=== PATIENT | male | born 1965 | race African-American/Black ===

== ENCOUNTER 2024-09-25 13:18 | Inpatient (IN) | payer MEDICAID, OTHER ==
[~2024-09-25] VITALS: Ht 190.5 cm; Wt 92.7 kg
--- NOTE | 2024-09-25 14:23 | ED.PDOC ---
HPI (NEURO) HPI Comments 58-year-old male with past medical history of CVA 3 times, hypertension, diabetes mellitus, hyperlipidemia presented with complaints of mechanical fall. at bedside mentioned that patient fell 2 times in last two weeks. Patient had one episode of vomiting with the 2nd fall that happened one week ago. During the 2nd Fall event, patient was found on the floors "passed out" according to the , when she tried to wake him up, he he woke up after 4-5 seconds. According to he has become more confused in last 2 weeks, has associated urinary incontinence. For the past two weeks patient also started having unstable gait. Patient had a tooth break during the falls. also mentioned about having weight loss about 9 lb in last one and a half month. On evaluation, patient is alert and oriented x4, denies any active complaints but mentioned that he does not feel good but could not explain why. Past medical history CVA 3 times, hypertension, diabetes mellitus, hyperlipidemia , anemia Past surgical history Not significant Medication history Ozempic, insulin Lantus, hydrochlorothiazide, atorvastatin, memantine, gabapentin, amlodipine, tamsulosin, megestrol, fluoxetine, candesartan, cilostazol, metformin, aspirin ROS Constitutional: Generalized weakness, recent weight loss, no fever, chills Eyes: Decrease in vision per ENT: Decrease in hearing per Respiratory: No: Cough, Dry, Shortness of breath, SOB with excertion, Wheezing, Hemoptysis, Pleuritic Pain, Sputum, Wheezing, Other Cardiovascular: No: Chest Pain, Palpitations, Orthopnea, Paroxysmal Noc. Dyspn ea, Edema, Lt Headedness, Other Gastrointestinal: No: Nausea, Vomiting, Abdominal Pain, Diarrhea, Constipation, Melena, Hematochezia, Other Musculoskeletal: No: other, neck pain, shoulder pain, arm pain, back pain, hand pain, leg pain, foot pain Neurological:; unsteady gait, mechanical fall, urinary incontinence, confusion per Examination General Appearance: Alert, Oriented X3, Cooperative, No acute distress Respiratory: Clear to auscultation, Normal air movement Cardiovascular: Regular rate, Normal S1, Normal S2 Abdominal: Soft Skin: No rashes, No breakdown Neuro: Slow speech, mild facial deviation, no other gross cranial nerve defects, no motor deficit in bilateral upper limb, gait not assessed Attestation note: Dr. Tidwell: I was the supervising attending for this ED encounter. Please see the resident's notes. I was available for questions and consultations. Differential diagnosis: DDX include CVA, TGA, cerebellar ischemia/infarct, carotid stenosis, Intracranial mass/infection/bleed, encephalopathy, electrolyte abnormality, thyroid disease, hydrocephalus, hypoglycemia, drug toxicity, cardiac arrhythmia, seizure, infection in the elderly, Hyperammonemia., kidney failure., sepsis. MDM: Patient presented with the above HPI.--fall/AMS----workup was initiated. patient was found with the above mentioned diagnosis. Patient was given: Fluids and Zosyn Patient ED course and VS have been stabilized. Patient has been reassessed in the ED and remained in a stable condition. Pertinent incidental findings were discussed with the patient and/or family. Patient/family voices understanding and is agreeable with plan. Patient has been observed in the ED adequate length of time to insure improvement/stability. patient was admitted to the medicine team for further evaluation and treatment of their presentation. All the reports of any imaging studies that were ordered by myself were reviewed by myself. Chief Complaint: General Weakness Time Seen by MD: 13:24 Information Source: Patient, Emergency Med Personnel Mode of Arrival: Wheelchair Physical Exam General Appearance: Other (Mentioned in the note) HEENT: Other (Mentioned in the note) Neck: Other (mentioned in the note) Respiratory: Other (Mentioned in the note) Cardiovascular: Other (Mentioned in the note) Breast Exam: Deferred Gastrointestinal: Other (Mentioned in the note) Genitalia: Deferred Pelvic: Deferred Rectal: Deferred Extremities: Other (Mentioned did not note) Neurologic: Other (Mentioned in the note) Cerebellar Function: Other (Mentioned in the note) Reflexes: Other (Mentioned in the note) Skin: Other (Mentioned in the note) Lymphatic: Other (Mentioned in the note) Was a procedure done? Was a procedure done?: No Differential Diagnosis (SZ) CVA: CVA, Drug Overdose, Electrolyte Imbalance, Encephalopathy, Mass Lesion General Weakness: Anemia, Dehydration, Electrolyte imbalance, Encephalopathy, Vertigo: central, Other (Includes but not limited to thyroid disease, encephalopathy, electrolyte abnormality, sepsis, infection, intracranial pathology, drug adverse effects, arrhythmia, kidney insufficiency, ACS, CVA, malignancy, anemia) Headache: Other (DDX include CVA, TGA, cerebellar ischemia/infarct, carotid stenosis, Intracranial mass/infection/bleed, encephalopathy, electrolyte abnormality, thyroid disease, hydrocephalus, hypoglycemia, drug toxicity, cardiac arrhythmia, seizure, infection in the elderly, Hyperammonemia., kidney failure., sepsis.) X-Ray, Labs, Meds, VS Vital Signs Date Time Temp Pulse Resp B/P (MAP) Pulse Ox O2 Delivery O2 Flow Rate FiO2 09/25/24 20:17 98.8 121 18 111/67 (82) 96 98.8 09/25/24 16:36 Room Air* 0 21 09/25/24 16:35 99.5 97 15 115/81 (92) 100 99.5 09/25/24 13:42 99.1 107 16 116/83 (94) 100 09/25/24 13:40 111 Lab Test 09/25/24 20:28 09/25/24 20:11 09/25/24 17:30 09/25/24 14:30 Range/Units Urine Color Yellow Yellow Urine Clarity Clear Clear Urine pH 5.0 5.0-9.0 Urine Specific [place] 1.023 1.001-1.035 Urine Protein Trace H Negative Urine Ketones Negative Negative Urine Blood Negative Negative /uL Urine Nitrite Negative Negative Urine Bilirubin Negative Negative Urine Urobilinogen Normal Negative mg/dL Urine Leukocyte Esterase Negative Negative /uL Urine RBC 2 0 - 3 /hpf Urine WBC 1 0 - 3 /hpf Urine Squamous Epithelial Cells None seen <5 /hpf Urine Bacteria Few H None Seen /hpf Urine Mucus Few None Seen Urine Glucose Normal Normal mg/dL Urine Opiates Screen Neg NEGATIVE Urine Fentanyl Screen Neg NEGATIVE Urine Barbiturates Screen Neg NEGATIVE Urine Phencyclidine Screen Neg NEGATIVE Urine Amphetamines Screen Neg NEGATIVE Urine Benzodiazepines Screen Neg NEGATIVE Urine Cocaine Screen Neg NEGATIVE Urine Cannabinoids Screen Neg NEGATIVE Troponin I High Sensitivity 3 L < 3 L 3 L </=54 ng/L Lactic Acid Level 3.9 *H 3.0 *H 0.4-2.0 mmol/L White Blood Count 5.2 4.4-10.8 10^3/uL Red Blood Count 3.99 L 4.5-5.90 10^6/uL Hemoglobin 11.8 L 13.5-17.5 g/dL Hematocrit 35.2 L 41.0-53.0 % Mean Corpuscular Volume 88.1 80.0-100.0 fL Mean Corpuscular Hemoglobin 29.6 28.0-32.0 pg Mean Corpuscular Hemoglobin Concent 33.6 32.0-36.0 g/dL Red Cell Distribution Width 17.2 H 11.8-14.3 % Platelet Count 331 140-450 10^3/uL Mean Platelet Volume 6.6 L 6.9-10.8 fL Neutrophils (%) (Auto) 60.0 37.0-80.0 % Lymphocytes (%) (Auto) 25.9 10.0-50.0 % Monocytes (%) (Auto) 9.6 0.0-12.0 % Eosinophils (%) (Auto) 3.3 0.0-7.0 % Basophils (%) (Auto) 1.2 0.0-2.0 % Neutrophils # (Auto) 3.1 1.6-8.6 10 ^3/uL Lymphocytes # (Auto) 1.3 0.4-5.4 10 ^3/uL Monocytes # (Auto) 0.5 0-1.3 10 ^3/uL Eosinophils # (Auto) 0.2 0-0.8 10 ^3/uL Basophils # (Auto) 0.1 0-0.2 10 ^3/uL Nucleated Red Blood Cells 0.0 % Prothrombin Time 11.2 9.3-11.8 sec Prothrombin Time INR 1.06 0.9-1.15 Activated Partial Thromboplast Time 24.9 24.5-34.5 SEC Sodium Level 138 136-145 mmol/L Potassium Level 3.7 3.5-5.1 mmol/L Chloride Level 107 98-107 mmol/L Carbon Dioxide Level 22 20-31 mmol/L Anion Gap 9 5-15 Blood Urea Nitrogen 11 9-23 mg/dL Creatinine 0.98 0.700-1.30 mg/dL Glomerular Filtration Rate Calc 89 >90 mL/min BUN/Creatinine Ratio 11.2 10.0-20.0 Serum Glucose 138 H 74-106 mg/dL Calcium Level 10.3 8.7-10.4 mg/dL Magnesium Level 1.8 1.6-2.6 mg/dL Total Bilirubin 0.5 0.2-1.0 mg/dL Aspartate Amino Transferase (AST) 10 L 13-40 U/L Alanine Aminotransferase (ALT) 24 7-40 U/L Alkaline Phosphatase 70 46-116 U/L Ammonia < 10 L 11-32 umol/L Total Protein 6.6 5.7-8.2 g/dL Albumin 4.0 3.2-4.8 g/dL Lipase 69 H 12-53 U/L Test 09/25/24 13:32 Range/Units POC Glucose 146 H 70-106 mg/dl Microbiology Date/Time Source Procedure Growth Status 09/25/24 20:28 Voided Urine Urine Culture - Final [place] [facility] [place] [id number] [place] [address] Ph: [phone] DIAGNOSTIC IMAGING Diagnostic Imaging Report : [id number] Signed PATIENT: JAYA MCKEON ACCT: [id number] UNIT: [id number] : 1965 LOC: ER ROOM / BED: / AGE / SEX: 58 / M ADM STATUS: REG ER SERVICE 1343 ORDERING PHYSICIAN: SEBASTIEN TIDWELL DO PROCEDURE(s): HWOCT - HEAD WITHOUT CONTRAST REASON: FALL INJURY/HEADACHE ORDER NUMBER(s): [id number], ACCESSION NUMBER(s): [id number] EXAM: CT HEAD WITHOUT CONTRAST HISTORY: FALL INJURY/HEADACHE COMPARISON: None TECHNIQUE: Axial images of the head were obtained and reformatted in coronal and sagittal planes. All CT scans at this medical facility are performed using dose modulation techniques as appropriate to a performed exam including the following: Automated exposure control was utilized; adjustment of the MA and/or KV according to patient size; and use of iterative reconstruction technique. CT Dose: CTDI volume is 24.7 mGy. Dose-length product is 2174 mGy*cm FINDINGS: There is a hypodense focus along the anterior left thalamus, just left lateral to the 3rd ventricle which may represent a chronic infarct. There is also a small chronic infarct in the right cerebellum. There is no evidence of acute in tracranial hemorrhage, mass, mass effect midline shift. There is no hydrocephalus or extra-axial fluid collection. The visualized paranasal sinuses and mastoid air cells are clear. The calvarium is intact. IMPRESSION: 1. No acute intracranial process. 2. Chronic infarcts along the anterior left thalamus and in the right cerebellum. HS:Y ATED BY: DALE HERNANDEZ MD DICTATED DATE/TIME: 09/25/241434 SIGNED BY: DALE HERNANDEZ MD SIGNED DATE/TIME: 09/25/24 143 CC: [address] [address] Ph: [phone] DIAGNOSTIC IMAGING Diagnostic Imaging Report : [id number] Signed PATIENT: JAYA MCKEON ACCT: [id number] UNIT: [id number] : 1965 LOC: ER ROOM / BED: / AGE / SEX: 58 / M ADM STATUS: REG ER SERVICE 1356 ORDERING PHYSICIAN: SEBASTIEN TIDWELL DO PROCEDURE(s): CS2 - CERVICAL WITHOUT CONTRAST REASON: fall ORDER NUMBER(s): [id number], ACCESSION NUMBER(s): [id number] Procedure: CT CERVICAL WITHOUT CONTRAST 09/25/2024 02:03 PM Indication: fall Comparison Study: None. Technique: Axial images were obtained and reformatted in coronal and sagittal planes. All CT scans at this medical facility are performed using dose modulation techniques as appropriate to a performed exam including the following: Automated exposure control was utilized; adjustment of the MA and/or KV according to patient size; and use of iterative reconstruction technique. CT Dose: CTDI volume is 68.2 mGy. Dose-length product is 2174.28 mGy*cm FINDINGS: Bones: The vertebrae are normal in height. Normal alignment of the vertebrae. Lateral masses C1 and C2 are well aligned. The posterior facet joints are well aligned. Narrowing of C5-C6 disc height with discogenic endplate changes and uncovertebral arthropathy with resultant mild osseous central canal stenosis and [id number] bilateral neural foramina stenosis noted. Soft tissues: Paraspinal and prevertebral soft tissues are within normal limits. IMPRESSION: 1. Straightening of normal lordosis that could be positional, reflect muscle spasm or pain. Correlate clinically. 2. No acute osseous abnormality. ATED BY: ENEDINA BAÑUELOS MD DICTATED DATE/TIME: 09/25/241444 SIGNED BY: ENEDINA BAÑUELOS MD SIGNED DATE/TIME: 09/25/241444 CC: [address] - [address] Ph: [phone] DIAGNOSTIC IMAGING Diagnostic Imaging Report : [id number] Signed PATIENT: JAYA MCKEON ACCT: [id number] UNIT: [id number] : 1965 LOC: ER ROOM / BED: / AGE / SEX: 58 / M ADM STATUS: REG ER SERVICE 1356 ORDERING PHYSICIAN: SEBASTIEN TIDWELL DO PROCEDURE(s): CXRP - CHEST PORTABLE REASON: weak ORDER NUMBER(s): [id number], ACCESSION NUMBER(s): [id number] EXAM: XY CHEST PORTABLE TECHNIQUE: Single frontal chest radiograph CLINICAL HISTORY: weak COMPARISON: None Findings/Impression: Frontal chest radiograph demonstrates no acute osseous or superficial soft tissue abnormalities. The trachea is midline. The cardiac silhouette and mediastinum are within normal limits. No pneumothorax, pleural effusions, or consolidations. ATED BY: SHANNON CELESTIN DO DICTATED DATE/TIME: 09/25/241431 SIGNED BY: SHANNON CELESTIN DO SIGNED DATE/TIME: 09/25/24 143 CC: Time of 1ST Reevaluation: 15:59 Reevaluation 1ST: Unchanged Patient Education/Counseling: Diagnosis, Treatment Family Education/Counseling: Diagnosis, Treatment Comments Patient presented with mechanical fall, confusion, unsteady gait and urinary incontinence. workup was initiated. Head CT did not show any acute abnormality and cervical spine CT showed S traightening of normal lordosis that could be positional, reflect muscle spasm or pain. Correlate clinically. Patient was given: IV fluids and IV Zosyn once. Patient has been observed in the ED adequate length of time to insure improvement/stability. patient was admitted to the medicine team for further evaluation and treatment of their presentation. All the reports of any imaging studies that were ordered by myself were reviewed by myself. Departure 1 Departure Time of Disposition: 15:59 Impression: Primary Impression: Fall Additional Impressions: Unsteady gait Altered mental status Elevated lactic acid level Disposition: ADMITTED INPATIENT Admit to: Tele Condition: Guarded Discharged With: Self Critical Care Note Critical Care Time?: No Stability Stability form required: No Heart Score Heart Score: Heart Score Response (Comments) Value History N/A 0 EKG N/A 0 Age N/A 0 Risk Factors N/A 0 Troponin N/A 0 Total 0 CECI LUONG Sep 25, 2024 14:22 SEBASTIEN TIDWELL DO Oct 03, 2024 21:24
--- NOTE | 2024-09-25 14:35 | DVH ---
EXAM: XY CHEST PORTABLE TECHNIQUE: Single frontal chest radiograph CLINICAL HISTORY: weak COMPARISON: None Findings/Impression: Frontal chest radiograph demonstrates no acute osseous or superficial soft tissue abnormalities. The trachea is midline. The cardiac silhouette and mediastinum are within normal limits. No pneumothorax, pleural effusions, or consolidations.
--- NOTE | 2024-09-25 14:37 | DVH ---
EXAM: CT HEAD WITHOUT CONTRAST HISTORY: FALL INJURY/HEADACHE COMPARISON: None TECHNIQUE: Axial images of the head were obtained and reformatted in coronal and sagittal planes. All CT scans at this medical facility are performed using dose modulation techniques as appropriate t o a performed exam including the following: Automated exposure control was utilized; adjustment of th e MA and/or KV according to patient size; and use of iterative reconstruction technique. CT Dose: CTDI volume is 24.7 mGy. Dose-length product is 2174 mGy*cm FINDINGS: There is a hypodense focus along the anterior left thalamus, just left lateral to the 3rd ventricle w hich may represent a chronic infarct. There is also a small chronic infarct in the right cerebellum. There is no evidence of acute intracranial hemorrhage, mass, mass effect midline shift. There is no h ydrocephalus or extra-axial fluid collection. The visualized paranasal sinuses and mastoid air cells are clear. The calvarium is intact. IMPRESSION: 1. No acute intracranial process. 2. Chronic infarcts along the anterior left thalamus and in the right cerebellum. HS:Y
[2024-09-25 14:41] LABS: Basophils # (auto) 0.1 10 ^3/uL (0-0.2); Basophils % (auto) 1.2 % (0.0-2.0); Eosinophils # (auto) 0.2 10 ^3/uL (0-0.8); Eosinophils % (auto) 3.3 % (0.0-7.0); Hematocrit 35.2 % (41.0-53.0); Hemoglobin 11.8 g/dL (13.5-17.5); Lymphocytes # (auto) 1.3 10 ^3/uL (0.4-5.4); Lymphocytes % (auto) 25.9 % (10.0-50.0); Mean Corpuscular Hemoglobin 29.6 pg (28.0-32.0); Mean Corpuscular Hgb Conc. 33.6 g/dL (32.0-36.0); Mean Corpuscular Volume 88.1 fL (80.0-100.0); Monocytes # (auto) 0.5 10 ^3/uL (0-1.3); Monocytes % (auto) 9.6 % (0.0-12.0); Neutrophils # (auto) 3.1 10 ^3/uL (1.6-8.6); Platelet Count (auto) 331 10^3/uL (140-450); Red Blood Cells 3.99 10^6/uL (4.5-5.90); Red Cell Distribution Width 17.2 % (11.8-14.3); White Blood Cell 5.2 10^3/uL (4.4-10.8)
--- NOTE | 2024-09-25 14:48 | DVH ---
Procedure: CT CERVICAL WITHOUT CONTRAST 09/25/2024 02:03 PM Indication: fall Comparison Study: None. Technique: Axial images were obtained and reformatted in coronal and sagittal planes. All CT scans at this medical facility are performed using dose modulation techniques as appropriate t o a performed exam including the following: Automated exposure control was utilized; adjustment of th e MA and/or KV according to patient size; and use of iterative reconstruction technique. CT Dose: CTDI volume is 68.2 mGy. Dose-length product is 2174.28 mGy*cm FINDINGS: Bones: The vertebrae are normal in height. Normal alignment of the vertebrae. Lateral masses C1 and C2 are well aligned. The posterior facet joints are well aligned. Narrowing of C5-C6 disc height with discogenic endplate changes and uncovertebral arthropathy with resultant mild osseous central canal stenosis and [id number] bilateral neural foramina stenosis noted. Soft tissues: Paraspinal and prevertebral soft tissues are within normal limits. IMPRESSION: 1. Straightening of normal lordosis that could be positional, reflect muscle spasm or pain. Correlate clinically. 2. No acute osseous abnormality.
[2024-09-25 14:59] LABS: Alanine Aminotransferase 24 U/L (7-40); Alkaline Phosphatase 70 U/L (46-116); Anion Gap 9 (5-15); Aspartate Aminotransferase 10 U/L (13-40); BUN/Creatinine Ratio 11.2 (10.0-20.0); Bilirubin, Total 0.5 mg/dL (0.2-1.0); Blood Urea Nitrogen 11 mg/dL (9-23); Calcium 10.3 mg/dL (8.7-10.4); Carbon Dioxide 22 mmol/L (20-31); Chloride 107 mmol/L (98-107); Glucose 138 mg/dL (74-106); Lipase 69 U/L (12-53); Magnesium 1.8 mg/dL (1.6-2.6); Potassium 3.7 mmol/L (3.5-5.1); Sodium 138 mmol/L (136-145)
[2024-09-25 15:00] LABS: Total Protein 6.6 g/dL (5.7-8.2)
[2024-09-25 15:23] LABS: INR 1.06 (0.9-1.15); Partial Thromboplastin Time 24.9 SEC (24.5-34.5); Prothrombin Time 11.2 sec (9.3-11.8)
[2024-09-25] MEDS: SODIUM CHLORIDE 0.9% 1,000 ML IV ONE (16:33)
[2024-09-25] MEDS ORDERED: ACETAMINOPHEN 325 MG TAB PO PRN ×2 (21:15)
[2024-09-25] MEDS ORDERED: MORPHINE SULFATE INJ 2 MG/ml SYRG IV PRN ×2 (21:15)
[2024-09-25] MEDS ORDERED: NITROGLYCERIN 0.4 MG SL TAB SL PRN (21:15)
[2024-09-25] MEDS ORDERED: ONDANSETRON HCL 4 MG/2 ML VIAL IV PRN (21:15)
[2024-09-25 21:22] LABS: Urine Bacteria FEW /hpf (None Seen); Urine Blood Negative /uL (Negative); Urine Clarity Clear (Clear); Urine Color Yellow (Yellow); Urine Mucus FEW (None Seen); Urine Protein, UAD TRACE (Negative); Urine Specific Gravity 1.023 (1.001-1.035); Urine Urobilinogen Normal (Negative); Urine WBC 1 /hpf (0 - 3)
--- NOTE | 2024-09-25 22:10 | DVHHPRES ---
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 patient went to see his PCP and PCP sent the patient to ER. History was mostly taken from . As per patient had a fall on Wednesday09/16/24 and also on Wednesday09/19/24. Patient's reported after 1st fall on 09/17/2024 patient had vomiting, no blood. After 2nd fall on 09/19/24 patient lost consciousness for 4-5 seconds. On both fall patient was facing down, hit on the left side of the face especially on the left supraorbital region which caused some left supra orbital swelling. As per patient his pain was 5/10, crampy, no aggravating or relieving factor, no radiation. Patient's reported that after falls he is having intermittent incontinence of the urine and also worsening memory loss, worsening balance and decreased hearing on the right side of ear. Further discussion patient's also reported patient has been losing weight recently. Patient and his denied chest pain, shortness of breath, palpitation, fever, constipation or d iarrhea, acute joint pain or swelling. Lab workup revealed lactic acidosis, elevated lipase 69, troponin I negative, EKG with sinus tachycardia. On further lab workup CT head revealed-No acute intracranial process. Chronic infarcts along the anterior left thalamus and in the right cerebellum. CT scan of the cervical spine revealed- Straightening of normal lordosis that could be positional, reflect muscle spasm or pain. Correlate clinically. No acute osseous abnormality. CXR no acute cardiopulmonary disease noted. home meds Lantus 22 q.h.s., Ozempic 1 mg per week, atorvastatin 80 mg q.h.s., metformin 850 mg b.i.d., candesartan, cilostazol, aspirin 81 mg p.o. q.d., folic acid Past Medical History History of stroke 3 times, 1st two on October 122021, run was 7 days later, diabetes mellitus type 2, hypertension, hyperlipidemia Past Surgical History knee Surgery, cataract surgery Family History Father of heart attack, mom had diabetes mellitus Past Social History Lives with , nonalcoholic, non smoker, no substance abuse Review of Systems Review of Systems Patient was seen today at the bedside. Patient reports left supraorbital pain 03/17 Cardiovascular- deny acute chest pain or shortness of breath or cough or palpitation Respiratory- denies cough or short of breath or wheezing Gastrointestinal- denies any rectal bleeding, nausea or vomiting Musculoskeletal-denies acute joint swelling or tenderness or redness Neurological- denies acute dysarthria, dysphagia, change in vision Psychiatry- denies depression or SI or HI Skin- denies acute rash or purpura Constitutional: Yes: Fever, Chills, Sweats, Weakness, Malaise Allergies: Coded Allergies: NO KNOWN ALLERGIES (Unverified , 09/25/24) Medications Current Medications Medications Dose Ordered Sig/Keiko Route Start Time Stop Time Status Last Admin Dose Admin Acetaminophen 325 mg Q4HP PRN PO 09/25/24 21:15 Ondansetron HCl 4 mg Q4HP PRN IV 09/25/24 21:15 Acetaminophen 650 mg Q6HP PRN PO 09/25/24 21:15 Morphine Sulfate 2 mg Q4HPRN PRN IV 09/25/24 21:15 Nitroglycerin 0.4 mg Q5MINP PRN SL 09/25/24 21:15 Morphine Sulfate 2 mg Q30M PRN IV 09/25/24 21:15 Exam Vital Signs Vital Signs Date Time Temp Pulse Resp B/P (MAP) Pulse Ox O2 Delivery O2 Flow Rate FiO2 09/25/24 20:17 98.8 121 18 111/67 (82) 96 98.8 09/25/24 16:36 Room Air* 0 21 Exam General examination- by, alert, oriented HEENT- PEERLA, no acute nasal discharge Cardiovascular- S1-S2 audible, rate and rhythm regular, no murmur Respiratory- CTAB, no wheeze or rhonchi Gastrointestinal-nontender, bowel sound+. Nondistended Musculoskeletal-no acute joint swelling or tenderness or redness# Lower extremity- no leg edema Neurological- right-sided weakness of the body Psychiatry- denies depression or SI or HI Skin- no acute rash or purpura Labs/Xrays Labs Test 09/25/24 20:28 09/25/24 20:11 09/25/24 17:30 09/25/24 14:30 Range/Units Urine Color Yellow Yellow Urine Clarity Clear Clear Urine pH 5.0 5.0-9.0 Urine Specific [place] 1.023 1.001-1.035 Urine Protein Trace H Negative Urine Ketones Negative Negative Urine Blood Negative Negative /uL Urine Nitrite Negative Negative Urine Bilirubin Negative Negative Urine Urobilinogen Normal Negative mg/dL Urine Leukocyte Esterase Negative Negative /uL Urine RBC 2 0 - 3 /hpf Urine WBC 1 0 - 3 /hpf Urine Squamous Epithelial Cells None seen <5 /hpf Urine Bacteria Few H None Seen /hpf Urine Mucus Few None Seen Urine Glucose Normal Normal mg/dL Troponin I High Sensitivity 3 L </=54 ng/L Lactic Acid Level 3.9 *H 0.4-2.0 mmol/L White Blood Count 5.2 4.4-10.8 10^3/uL Red Blood Count 3.99 L 4.5-5.90 10^6/uL Hemoglobin 11.8 L 13.5-17.5 g/dL Hematocrit 35.2 L 41.0-53.0 % Mean Corpuscular Volume 88.1 80.0-100.0 fL Mean Corpuscular Hemoglobin 29.6 28.0-32.0 pg Mean Corpuscular Hemoglobin Concent 33.6 32.0-36.0 g/dL Red Cell Distribution Width 17.2 H 11.8-14.3 % Platelet Count 331 140-450 10^3/uL Mean Platelet Volume 6.6 L 6.9-10.8 fL Neutrophils (%) (Auto) 60.0 37.0-80.0 % Lymphocytes (%) (Auto) 25.9 10.0-50.0 % Monocytes (%) (Auto) 9.6 0.0-12.0 % Eosinophils (%) (Auto) 3.3 0.0-7.0 % Basophils (%) (Auto) 1.2 0.0-2.0 % Neutrophils # (Auto) 3.1 1.6-8.6 10 ^3/uL Lymphocytes # (Auto) 1.3 0.4-5.4 10 ^3/uL Monocytes # (Auto) 0.5 0-1.3 10 ^3/uL Eosinophils # (Auto) 0.2 0-0.8 10 ^3/uL Basophils # (Auto) 0.1 0-0.2 10 ^3/uL Nucleated Red Blood Cells 0.0 % Prothrombin Time 11.2 9.3-11.8 sec Prothrombin Time INR 1.06 0.9-1.15 Activated Partial Thromboplast Time 24.9 24.5-34.5 SEC Sodium Level 138 136-145 mmol/L Potassium Level 3.7 3.5-5.1 mmol/L Chloride Level 107 98-107 mmol/L Carbon Dioxide Level 22 20-31 mmol/L Anion Gap 9 5-15 Blood Urea Nitrogen 11 9-23 mg/dL Creatinine 0.98 0.700-1.30 mg/dL Glomerular Filtration Rate Calc 89 >90 mL/min BUN/Creatinine Ratio 11.2 10.0-20.0 Serum Glucose 138 H 74-106 mg/dL Calcium Level 10.3 8.7-10.4 mg/dL Magnesium Level 1.8 1.6-2.6 mg/dL Total Bilirubin 0.5 0.2-1.0 mg/dL Aspartate Amino Transferase (AST) 10 L 13-40 U/L Alanine Aminotransferase (ALT) 24 7-40 U/L Alkaline Phosphatase 70 46-116 U/L Ammonia < 10 L 11-32 umol/L Total Protein 6.6 5.7-8.2 g/dL Albumin 4.0 3.2-4.8 g/dL Lipase 69 H 12-53 U/L Test 09/25/24 13:32 Range/Units POC Glucose 146 H 70-106 mg/dl Assessment/Plan Assessment/Plan # mechanical fall twice -reported worsening loss of balance -worsening hearing on the right side -intermittent incontinence of urine -left periorbital pain - CT head revealed-No acute intracranial process. Chronic infarcts along the anterior left thalamus and in the right cerebellum. - CT scan of the cervical spine revealed- Straightening of normal lordosis that could be positional, reflect muscle spasm or pain. Correlate clinically. No acute osseous abnormality. -fall precaution # syncope - CT head revealed-No acute intracranial process. Chronic infarcts along the anterior left thalamus and in the right cerebellum. - CT scan of the cervical spine revealed- Straightening of normal lordosis that could be positional, reflect muscle spasm or pain. Correlate clinically. No acute osseous abnormality. -fall precaution -pending echo 2D -ordered carotid Doppler -ordered EKG # history of CVD x3 with right-sided residual weakness -- CT head revealed-No acute intracranial process. Chronic infarcts along the anterior left thalamus and in the right cerebellum. -continue aspirin 81 mg p.o. daily -continue atorvastatin 80 mg p.o. q.h.s. # unsteady gait, worsening balance -history of CVD -for precaution --continue aspirin 81 mg p.o. daily -continue atorvastatin 80 mg p.o. q.h.s. # urinary incontinence -history of stroke x3 -urinalysis negative for UTI -continue monitoring #Lactic acidosis due to metformin -lactic acid 3.0>3.9>3.2 -continue IV fluid as prescribed # diabetes mellitus type 2 -continue seen sliding scale as prescribed # hypertension -continue hydralazine p.r.n. as prescribed # hyperlipidemia -continue atorvastatin 80 mg p.o. q.h.s. Goals of care/advance care planning; FULL CODE; discussed with the patient >15 minutes PUD prophylaxis: DVT prophylaxis: Plan discussed with , nursing staff, patient Total time spent on patient evaluation, chart review, assessment and plan, discussion discussion >20 minutes Plan discussed with: Patient Plan discussed with: Patient My Orders Orders - ALYSSA QUIÑONES RESIDENT Procedure Category Date Status Time Admit ADMIT 09/25/24 Transmitted 21:12 Code Status CODE 09/25/24 Transmitted 21:12 2 Gm Sodium Diet DIET 09/26/24 Transmitted Breakfast Acetaminophen Tablet PHA 09/25/24 In Process (Tylenol Tablet) 21:15 Ondansetron Hcl PHA 09/25/24 In Process (Zofran) 21:15 Cardiac DIET 09/26/24 Transmitted Diet-2gna,Lofat,Lochol Breakfast Acetaminophen Tablet PHA 09/25/24 In Process (Tylenol Tablet) 21:15 Morphine Sulfate PHA 09/25/24 In Process Injection 21:15 Nitroglycerin PHA 09/25/24 In Process Sublingual (Ntrostat 21:15 Morphine Sulfate PHA 09/25/24 In Process Injection 21:15 Oxygen By Nasal RT 09/25/24 Transmitted Cannula 21:12 Stat Ekg For Chest [facility] 09/25/24 In Process Pain 21:12 Notify Of Changes [facility] 09/25/24 In Process From Base 21:12 Paint Stripper For [facility] 09/25/24 In Process 24 Hours 21:12 Emergency Dysrhythmia [facility] 09/25/24 In Process Protocol 21:12 Rhythm Strips Once [facility] 09/25/24 In Process Every Shift 21:12 Date of Service: Sep 25, 2024 Billing Provider: NEIL KIRK MD Common Visit Codes: 94623-[id number] INP/OBS CARE (HIGH) ALYSSA QUIÑONES RESIDENT Sep 25, 2024 22:10 NEIL KIRK MD Sep 26, 2024 10:31
[2024-09-25] MEDS: PIPERACILLIN-TAZOB 3.375GM 100 ML IV ONE (22:15)
[2024-09-26] MEDS: ATORVASTATIN 20 MG TAB PO ONE (00:18)
[2024-09-26] MEDS: ASPirin 81 mg TAB PO ONE (00:19)
[2024-09-26 03:25] LABS: Lactic Acid w/Reflex 3.2 mmol/L (0.4-2.0)
[2024-09-26] MEDS ORDERED: DEXTROSE (50%) 50ML SYRG IV PRN (04:45)
[2024-09-26] MEDS ORDERED: hydrALAZINE HCL 20 MG/ML VL IV PRN (04:45)
[2024-09-26] MEDS ORDERED: ONDANSETRON HCL 4 MG/2 ML VIAL IV PRN (04:45)
[2024-09-26] MEDS: SODIUM CHLORIDE 0.9% 1,000 ML IV SCH (04:48)
[2024-09-26 05:11] LABS: Basophils # (auto) 0.1 10 ^3/uL (0-0.2); Basophils % (auto) 1.1 % (0.0-2.0); Eosinophils # (auto) 0.2 10 ^3/uL (0-0.8); Eosinophils % (auto) 3.5 % (0.0-7.0); Hematocrit 32.7 % (41.0-53.0); Hemoglobin 11.1 g/dL (13.5-17.5); Lymphocytes # (auto) 1.4 10 ^3/uL (0.4-5.4); Lymphocytes % (auto) 24.5 % (10.0-50.0); Mean Corpuscular Hemoglobin 29.7 pg (28.0-32.0); Mean Corpuscular Volume 87.4 fL (80.0-100.0); Monocytes # (auto) 0.6 10 ^3/uL (0-1.3); Monocytes % (auto) 10.9 % (0.0-12.0); Neutrophils # (auto) 3.5 10 ^3/uL (1.6-8.6); Platelet Count (auto) 345 10^3/uL (140-450); Red Blood Cells 3.74 10^6/uL (4.5-5.90); Red Cell Distribution Width 17.4 % (11.8-14.3); White Blood Cell 5.9 10^3/uL (4.4-10.8)
[2024-09-26 05:16] LABS: Chloride 105 mmol/L (98-107); Potassium 3.4 mmol/L (3.5-5.1); Sodium 138 mmol/L (136-145)
[2024-09-26 05:17] LABS: Anion Gap 10 (5-15); Calcium 10.2 mg/dL (8.7-10.4); Carbon Dioxide 23 mmol/L (20-31)
[2024-09-26 05:22] LABS: BUN/Creatinine Ratio 10.8 (10.0-20.0); Blood Urea Nitrogen 11 mg/dL (9-23); Glucose 116 mg/dL (74-106)
[2024-09-26 06:13] LABS: Lactic Acid w/Reflex 3.5 mmol/L (0.4-2.0)
[2024-09-26] MEDS: InsuLIN REG 1unit/0.01ml Soln (100units/ml) SC SCH (07:00)
[2024-09-26] MEDS: ACCU-CHEK COMFORT CURVE STRIP VI SCH (07:11)
[2024-09-26] MEDS: POTASSIUM CHL 20MEQ/100ML 100 ML IV SCH (08:17)
[2024-09-26] MEDS: POTASSIUM CHLORIDE 20 MEQ, LIDOCAINE 1% (LOCAL ANESTH.) 2 ML in SODIUM CHL 0.9% 100 ML IV ONE (08:17)
[2024-09-26 08:30] VITALS: BP 125/81; TEMP 98
[2024-09-26 08:44] VITALS: PULSE 103; RESP 17; O2SAT 98
--- NOTE | 2024-09-26 09:07 | DVH ---
CAROTID ARTERIAL DOPPLER CLINICAL HISTORY: Syncopy TECHNIQUE: Doppler study of bilateral carotid/vertebral arteries were performed. Comparison: None FINDINGS: The bilateral common carotid, external and internal carotid arteries appear patent without hemodynami leighton significant stenosis. There is no significant flow limiting plaque formation identified.The sp ectral wave forms and peak systolic velocities are within normal limits. Antegrade flow is present within the vertebral arteries . Right ICA/CCA PSV ratio = 0.7. Left ICA/CCA PSV ratio = 1.3 . IMPRESSION: 1. No hemodynamically significant stenosis within the cervical carotid arteries. HS:Y
[2024-09-26] MEDS ORDERED: ASPirin 81 mg TAB PO SCH (10:00)
--- NOTE | 2024-09-26 12:49 | DVHDSRES ---
Discharge Summary Date of Admission Resident Creating Document: BENNIE TIDWELL RESIDENT Sep 25, 2024 at 21:12 Date of Discharge: Sep 26, 2024 Admitting Diagnosis rule out acute stroke Labs/Diagnostic Data: Laboratory Results Test 09/26/24 06:51 09/26/24 04:51 09/25/24 20:28 09/25/24 20:11 Lactic Acid Level 3.5 mmol/L (0.4-2.0) White Blood Count 5.9 10^3/uL (4.4-10.8) Red Blood Count 3.74 10^6/uL (4.5-5.90) Hemoglobin 11.1 g/dL (13.5-17.5) Hematocrit 32.7 % (41.0-53.0) Mean Corpuscular Volume 87.4 fL (80.0-100.0) Mean Corpuscular Hemoglobin 29.7 pg (28.0-32.0) Mean Corpuscular Hemoglobin Concent 34.0 g/dL (32.0-36.0) Red Cell Distribution Width 17.4 % (11.8-14.3) Platelet Count 345 10^3/uL (140-450) Mean Platelet Volume 6.8 fL (6.9-10.8) Neutrophils (%) (Auto) 60.0 % (37.0-80.0) Lymphocytes (%) (Auto) 24.5 % (10.0-50.0) Monocytes (%) (Auto) 10.9 % (0.0-12.0) Eosinophils (%) (Auto) 3.5 % (0.0-7.0) Basophils (%) (Auto) 1.1 % (0.0-2.0) Neutrophils # (Auto) 3.5 10 ^3/uL (1.6-8.6) Lymphocytes # (Auto) 1.4 10 ^3/uL (0.4-5.4) Monocytes # (Auto) 0.6 10 ^3/uL (0-1.3) Eosinophils # (Auto) 0.2 10 ^3/uL (0-0.8) Basophils # (Auto) 0.1 10 ^3/uL (0-0.2) Nucleated Red Blood Cells 0.0 % Sodium Level 138 mmol/L (136-145) Potassium Level 3.4 mmol/L (3.5-5.1) Chloride Level 105 mmol/L (98-107) Carbon Dioxide Level 23 mmol/L (20-31) Anion Gap 10 (5-15) Blood Urea Nitrogen 11 mg/dL (9-23) Creatinine 1.02 mg/dL (0.700-1.30) Glomerular Filtration Rate Calc 85 mL/min (>90) BUN/Creatinine Ratio 10.8 (10.0-20.0) Serum Glucose 116 mg/dL (74-106) Hemoglobin A1c 7.0 % A1C (<5.7) Calcium Level 10.2 mg/dL (8.7-10.4) Vitamin B12 Level 484 pg/mL (211-911) Thyroid Stimulating Hormone (TSH) 3.69 uIU/mL (0.55-4.78) Urine Color Yellow (Yellow) Urine Clarity Clear (Clear) Urine pH 5.0 (5.0-9.0) Urine Specific [place] 1.023 (1.001-1.035) Urine Protein Trace (Negative) Urine Ketones Negative (Negative) Urine Blood Negative /uL (Negative) Urine Nitrite Negative (Negative) Urine Bilirubin Negative (Negative) Urine Urobilinogen Normal mg/dL (Negative) Urine Leukocyte Esterase Negative /uL (Negative) Urine RBC 2 /hpf (0 - 3) Urine WBC 1 /hpf (0 - 3) Urine Squamous Epithelial Cells None seen /hpf (<5) Urine Bacteria Few /hpf (None Seen) Urine Mucus Few (None Seen) Urine Glucose Normal mg/dL (Normal) Troponin I High Sensitivity 3 ng/L (</=54) Test 09/25/24 14:30 09/25/24 13:32 Prothrombin Time 11.2 sec (9.3-11.8) Prothrombin Time INR 1.06 (0.9-1.15) Activated Partial Thromboplast Time 24.9 SEC (24.5-34.5) Magnesium Level 1.8 mg/dL (1.6-2.6) Total Bilirubin 0.5 mg/dL (0.2-1.0) Aspartate Amino Transferase (AST) 10 U/L (13-40) Alanine Aminotransferase (ALT) 24 U/L (7-40) Alkaline Phosphatase 70 U/L (46-116) Ammonia < 10 umol/L (11-32) Total Protein 6.6 g/dL (5.7-8.2) Albumin 4.0 g/dL (3.2-4.8) Lipase 69 U/L (12-53) POC Glucose 146 mg/dl (70-106) Other Laboratory Tests 09/26/24 04:51 Brief Hx & Hospital Course: 58-year-old male with past medical history of CVA 3 times, hypertension, diabetes mellitus, hyperlipidemia presented with complaints of mechanical fall. at bedside mentioned that patient fell 2 times in last two weeks. Patient had one episode of vomiting with the 2nd fall that happened one week ago. During the 2nd Fall event, patient was found on the floors "passed out" according to the , when she tried to wake him up, he woke up after 4-5 seconds. According to he has become more confused in last 2 weeks, has associated urinary incontinence. For the past two weeks patient also started having unstable gait. Patient had a tooth break during the falls. also mentioned about having weight loss about 9 lb in last one and a half month. At admission; head ct scan showed Chronic infarcts along the anterior left thalamus and in the right cerebellum, spine ct scan Straightening of normal lordosis that could be positional, reflect muscle spasm or pain. Normal carotid Doppler Labs: elevated lactic acid and hypokalemia. During the assessment in the morning, patient states that he wants to go home and refuse any work up, extensively counseling was done regarding to f/u with cardiology and neurology due to the high change of new stroke probably cardioembolic, patient left AMA General examination- by, alert, oriented HEENT- PEERLA, no acute nasal discharge Cardiovascular- S1-S2 audible, rate and rhythm regular, no murmur Respiratory- CTAB, no wheeze or rhonchi Gastrointestinal-nontender, bowel sound+. Nondistended Musculoskeletal-no acute joint swelling or tenderness or redness# Lower extremity- no leg edema Neurological- right-sided weakness of the body Psychiatry- denies depression or SI or HI Skin- no acute rash or purpura Case discussed with Dr Larsen Time spent on care 23 min Operations or Procedures EXAM: CT HEAD WITHOUT CONTRAST HISTORY: FALL INJURY/HEADACHE COMPARISON: None TECHNIQUE: Axial images of the head were obtained and reformatted in coronal and sagittal planes. All CT scans at this medical facility are performed using dose modulation techniques as appropriate to a performed exam including the following: Automated exposure control was utilized; adjustment of the MA and/or KV according to patient size; and use of iterative reconstruction technique. CT Dose: CTDI volume is 24.7 mGy. Dose-length product is 2174 mGy*cm FINDINGS: There is a hypodense focus along the anterior left thalamus, just left lateral to the 3rd ventricle which may represent a chronic infarct. There is also a small chronic infarct in the right cerebellum. There is no evidence of acute intracranial hemorrhage, mass, mass effect midline shift. There is no hydrocephalus or extra-axial fluid collection. The visualized paranasal sinuses and mastoid air cells are clear. The calvarium is intact. IMPRESSION: 1. No acute intracranial process. 2. Chronic infarcts along the anterior left thalamus and in the right cerebellum. Procedure: CT CERVICAL WITHOUT CONTRAST 09/25/2024 02:03 PM Indication: fall Comparison Study: None. Technique: Axial images were obtained and reformatted in coronal and sagittal planes. All CT scans at this medical facility are performed using dose modulation techniques as appropriate to a performed exam including the following: Automated exposure control was utilized; adjustment of the MA and/or KV according to patient size; and use of iterative reconstruction technique. CT Dose: CTDI volume is 68.2 mGy. Dose-length product is 2174.28 mGy*cm FINDINGS: Bones: The vertebrae are normal in height. Normal alignment of the vertebrae. Lateral masses C1 and C2 are well aligned. The posterior facet joints are well aligned. Narrowing of C5-C6 disc height with discogenic endplate changes and uncovertebral arthropathy with resultant mild osseous central canal stenosis and [id number] bilateral neural foramina stenosis noted. Soft tissues: Paraspinal and prevertebral soft tissues are within normal limits. IMPRESSION: 1. Straightening of normal lordosis that could be positional, reflect muscle spasm or pain. Correlate clinically. 2. No acute osseous abnormality. CAROTID ARTERIAL DOPPLER CLINICAL HISTORY: Syncopy TECHNIQUE: Doppler study of bilateral carotid/vertebral arteries were performed. Comparison: None FINDINGS: The bilateral common carotid, external and internal carotid arteries appear patent without hemodynamically significant stenosis. There is no significant flow limiting plaque formation identified.The spectral wave forms and peak systolic velocities are within normal limits. Antegrade flow is present within the vertebral arteries . Right ICA/CCA PSV ratio = 0.7. Left ICA/CCA PSV ratio = 1.3 . IMPRESSION: 1. No hemodynamically significant stenosis within the cervical carotid arteries. Condition at Discharge: Poor Final Diagnosis/Problems List # mechanical fall twice # ?syncope # history of CVD x3 with right-sided residual weakness # rule out acute stroke probably cardioembolic # urinary incontinence # elevated lactic acid #rule out sepsis # diabetes mellitus type 2 # essential hypertension # hyperlipidemia Discharge Disposition: AMA Discharge Statement: "Patient was advised to return to the ER or call 911 if any headaches, dizziness, shortness of breath, chest pain, abdominal pain, bleeding, fevers, or worsening of medical condition. Patient was counseled about treatment plan, medications, possible side effects, patientverbalized understanding. All questions were answered to the best of my ability. This discharge took greater then 30 minutes in planning, reviewing documentation, counseling the patient, and discussing with other team members." ASSESSMENT ASSESSMENT Assessment Date of Service: Sep 26, 2024 Billing Provider: JACOB LARSEN MD Common Visit Codes: 94821-[id number] DISCH DAY >30min Coding Comment Comment Attending Attestation I saw and evaluated the patient. I reviewed the residents note and agree with findings and plan as documented in the residents note except as documented below. Patient requested to leave against medical advice, discussed patient high risk for recurrent stroke, no prior workup done, patient not following PCP, patient expressed understanding discharge against medical advice BENNIE TIDWELL RESIDENT Sep 26, 2024 12:49 JACOB LARSEN MD Sep 26, 2024 19:53
[2024-09-26 13:19] LABS: Amphetamine Screen, Urine Neg (NEGATIVE); Barbiturate Scree,Urine Neg (NEGATIVE); Benzodiazephine Screen, Urine Neg (NEGATIVE); Cocaine Screen, Urine Neg (NEGATIVE); Opiate Scree,Urine Neg (NEGATIVE); Phencyclidine Screen, Urine Neg (NEGATIVE)
[2024-09-26 13:20] LABS: Cannabinoid Screen, Urine Neg (NEGATIVE)
[2024-09-26] MEDS ORDERED: ATORVASTATIN 20 MG TAB PO SCH (22:00)
== END 2024-09-26 10:35 | disposition left against medical advice (07) | DRG 468 ==
LOC: ER 13:18 → OVERFLOW 21:12
PROVIDERS: ADMIT Student in an Organized Health Care Education/Training Program; ATTEND Internal Medicine Pulmonary Disease
DX: R32 Unspecified urinary incontinence (principal); E87.20 Acidosis, unspecified; E11.9 Type 2 diabetes mellitus without complications; R41.82 Altered mental status, unspecified; I10 Essential (primary) hypertension; E78.5 Hyperlipidemia, unspecified; Z53.29 Procedure and treatment not carried out because of patient's decision for other reasons; Z79.82 Long term (current) use of aspirin
CPT/HCPCS: 36415; 70450; 71045; 72125; 80048; 80053; 80307; 81001; 82140; 82607; 82962; 83036; 83605; 83690; 83735; 84443; 84484; 85025; 85610; 85730; 87086; 93886; G0378; J2003; J2543; J3480